=== PATIENT | female | born 1980 | race Caucasian/White ===

== ENCOUNTER 2016-10-05 00:51 | Emergency (ER) | payer OTHER ==
--- NOTE | ~2016-10-05 | CT4 ---
[facility] A Service of [facility] RADIOLOGY TEXT RESULTS PATIENT: JOHN BATISTA LOCATION: SED : 84 UNIT #: [id number] AGE: [address]: Ernesto Velásquez MD SEX: F ORDER DR: [id number] [place] [id number] E MR#: [id number] Acc #: [id number] NAME: JOHN BATISTA : 1980 SEX: F STUDY DATE/TIME: 10/05/2016 1:47 UNIT: SED ROOM: STUDY DESCRIPTION: CT Abd and Pelv Wo Cont Attending Physician: Ernesto Velásquez M.D. Ordering Physician: Ernesto Velásquez M.D. Primary Care Physician: Chicho Proctor M.D. MEDICAL IMAGING REPORT This report is preliminary unless electronic signature is present. EXAM CT abdomen and pelvis, noncontrast, 10/05/2016 HISTORY 36-year-old female in the ED complaining of 1-week history of right upper quadrant abdomen pain. The patient is reportedly jaundiced. She has a history of chronic liver disease, hepatitis C. TECHNIQUE CT examination of the abdomen and pelvis was performed without oral or IV contrast as requested by the ED physician. This CT exam was performed with one or more of the following radiation dose reduction techniques: automatic exposure control, adjustment of mA and/or kV according to patient size, and iterative reconstruction. COMPARISON CT abdomen/pelvis, 04/16/2016. FINDINGS Abdomen findings: Lack of contrast significantly limits this study. Marked hepatomegaly and severe diffuse hepatic steatosis. Mild splenomegaly. This is unchanged since the prior exam. No mass or other focal liver lesion is visible. Cholecystectomy. No bile duct dilatation. There is no convincing evidence of acute pancreatitis today, although limited without contrast administration. Atypical hyperdense cyst in the lower pole right kidney unchanged. 1 or 2 tiny nonobstructing right renal calculi. Small bowel and colon are normal in caliber and appearance, as imaged. PELVIS FINDINGS: Uterus, adnexal regions, bladder and [facility]um [facility] A Service of [facility] RADIOLOGY TEXT RESULTS PATIENT: JOHN BATISTA [place] [facility] [place] [birth year] [place]IT #: [id number] AGE: [address]: Ernesto Velásquez MD SEX: F ORDER DR: normal limits. Trace ascites within the pelvis. Lung base images show no active disease. There is no pleural effusion. IMPRESSION 1. Marked hepatomegaly and severe diffuse hepatic steatosis. Mild splenomegaly. This is unchanged since 04/16/2016. 2. Cholecystectomy. No bile duct dilatation. 3. No convincing evidence of acute pancreatitis today on this noncontrast study. 4. Atypical hyperdense right lower renal cyst unchanged since the previous exam. Tiny nonobstructing right renal calculi. 5. Trace ascites within the pelvis. Dictated by... Sebastien Chandra M.D. THIS IS AN ELECTRONICALLY VERIFIED REPORT Sebastien Chandra M.D. at 10/09/2016 5:01 PM REMIGIO/coy TD: 10/05/2016 08:00 JOB #: [id number] MEDICAL IMAGING REPORT Page 1 of 1
[2016-10-05 00:47] LABS: BASOPHIL# 0.1 X10e3 (0-0.3); BASOPHIL% 0.4 % (0-2.5); EOSINOPHIL% 0.3 % (0.0-7.0); HEMATOCRIT 37.4 % (35.0-45.0); HEMOGLOBIN 12.5 gm/dL (12.0-16.0); LYMPHOCYTE# 0.9 X10e3 (1.0-3.5); LYMPHOCYTE% 6.5 % (17.0-45.0); MEAN CELL VOLUME 99.1 FL (83-96); MEAN CORPUSCULAR HGB CONC 33.3 g/dL (30-36); MONOCYTE% 7.6 % (3.0-12.0); NEUTROPHIL# 11.5 X10e3 (1.5-7.1); NEUTROPHIL% 85.2 % (40-75); PLATELET COUNT 201 X10e3 (140-420); RED BLOOD COUNT 3.78 X10e (3.90-5.30); RED CELL DISTRIBUTION WIDTH 25.4 % (11.0-15.5); WHITE BLOOD COUNT 13.6 X10e3 (4.0-10.5)
[2016-10-05 00:49] LABS: DIFF IND NO
[~2016-10-05 00:51] MED LIST: AL-MAG HYDROX-S30 M1 PO; CIPRO PO; FLAGYL250 M1 PO; HYDROCODON-ACE1 EAC9 PO; K-DUR20 ME1 DOB; K-DUR20 ME1 PO; KEFLEX500 MG PO; METOPROLOL SUCC25 MG PO; NO MEDICATIONS; PHENERGAN12.5 M2 PR; PHENERGAN25 M1 PO; PROTONIX PO; SPIRONOLACTONE50 MG PO; THERAPEUTIC FOR1 TA1 PO; THIAMINE HCL100 M1 PO; VALTREX500 MG PO
[2016-10-05 01:10] LABS: ALBUMIN SERUM 3.1 g/dL (3.5-5.0); ALKALINE PHOSPHATASE 345 U/L (32-92); ALT (SGPT) 155 U/L (10-40); AST (SGOT) 617 U/L (10-42); BILIRUBIN,TOTAL 21.6 mg/dL (0.2-2.0); BLOOD UREA NITROGEN 7 mg/dL (9-23); CALCIUM SERUM 8.6 mg/dL (8.4-10.2); CARBON DIOXIDE 16 mmol/L (22-31); CHLORIDE 91 mmol/L (100-111); GLUCOSE FASTING 152 mg/dL (70-110); LIPASE 197 U/L (22-51); PROTEIN TOTAL SERUM 7.2 g/dL (6.0-8.3); SODIUM 132 mmol/L (135-145)
[2016-10-05 01:12] LABS: CREATININE SERUM <0.1 mg/dL (0.6-1.4); GLOM FILT RATE Estimated UNABLE TO CALCULATE mL/min (>60)
[2016-10-05 01:14] LABS: POTASSIUM 2.9 mmol/L (3.5-5.1)
[2016-10-05 01:41] LABS: BILIRUBIN,INDIRECT 8.1 mg/dL (0.0-0.9)
[2016-10-05 01:42] LABS: BILIRUBIN, DIRECT 13.5 mg/dL (0.0-0.2)
[2016-10-05 01:45] LABS: URINE SOURCE CLEAN CATCH
[2016-10-05 01:48] LABS: MICRO INDICATED? YES; URINE APPEARANCE CLEAR; URINE BILIRUBIN POS (NEG); URINE BLOOD 1+ (NEG); URINE COLOR YELLOW; URINE GLUCOSE NEG (NORM); URINE KETONE NEG (NEG); URINE LEUKOCYTE ESTERASE NEG (NEG); URINE NITRATE NEG (NEG); URINE PROTEIN TRACE (NEG); URINE SPECIFIC GRAVITY <=1.005 (1.003-1.035); URINE UROBILINOGEN 0.2 MG/DL (NORM)
[2016-10-05 01:49] LABS: CULTURE INDICATED? NO; URINE BACTERIA NEG (NEG); URINE SQUAMOUS EPITHELIAL CELL FEW /[HPF]; URINE TRANSITIONAL EPI CELLS OCCAS /[HPF]
== END 2016-10-05 06:55 ==
LOC: SED 00:51
PROVIDERS: Emergency Medicine
DX: K29.20 Alcoholic gastritis without bleeding (principal); K72.90 Hepatic failure, unspecified without coma; E87.6 Hypokalemia; K85.90 Acute pancreatitis without necrosis or infection, unspecified; E87.2 Acidosis; B19.20 Unspecified viral hepatitis C without hepatic coma; F32.9 Major depressive disorder, single episode, unspecified; F17.210 Nicotine dependence, cigarettes, uncomplicated; Z87.442 Personal history of urinary calculi; Z90.49 Acquired absence of other specified parts of digestive tract
CPT/HCPCS: 74176; 80048; 80076; 81003; 83690; 84703; 85025; 96361; 96374; 96375; 99285; J1170; J2405